=== PATIENT | male | born 1945 | race African-American/Black ===

== ENCOUNTER 2018-10-23 09:44 | Emergency (ER) | payer OTHER, BC ==
[~2018-10-23] VITALS: Ht 170.2 cm; Wt 65.8 kg
[~2018-10-23 09:44] MED LIST: ADULT LOW DOSE81 MG PO; ALKA-SELTZER P1 EAC7; ASPIRIN81 M2; CARVEDILOL25 MG PO; CENTRUM TABLET1 TAB PO; COREG PO; COZAAR 25 MG TA25 M2 PO; FERREX 150150 MG PO; FISH OIL 1,0001 EAC5 PO; GLUMETZA500 PO; LASIX 40 MG TAB40 M1 PO; LIPITOR40 MG PO; LISINOPRIL10 MG PO; MINIPRIN81 MG PO; NYQUIL D COLD295 ML; ONE DAILY FOR1 EAC2 PO; OXYCODONE HCL5 M1 PO; PHENYLEPHRINE H10 MG PO; PHISOHEX148 ML; POTASSIUM20; POTASSIUM20 PO; PROMETHAZINE/C118 ML
[2018-10-23 10:18] LABS: ABSOLUTE NEUTROPHILS 2.6 thou/uL (1.4-8.2); BASOPHILS 1.3 % (0.0-2.0); EOSINOPHILS 7.3 % (0.0-3.0); HEMATOCRIT 46.9 % (42.0-52.0); HEMOGLOBIN 15.8 gm/dL (14.0-18.0); LYMPHOCYTES 17.4 % (24.0-44.0); MCH 30.7 pg (26.0-34.0); MCHC 33.7 g/dL (28.0-37.0); MONOCYTES 8.5 % (1.0-8.0); PLATELET COUNT 179 thou/uL (150-400); POLYS 65.5 % (36.0-66.0); RBC 5.15 mil/uL (4.50-6.00); RDW 15.9 % (10.5-14.5)
[2018-10-23 10:33] LABS: ANION GAP 10 mmol/L (7-16); BUN 8 mg/dL (7-18); CALCIUM 9.4 mg/dL (8.5-10.1); CHLORIDE 103 mmol/L (98-107); CO2 25 mmol/L (21-32); GLUCOSE 110 mg/dL (74-106); POTASSIUM 4.6 mmol/L (3.5-5.1); SODIUM 138 mmol/L (136-145)
[2018-10-23 10:43] LABS: ALBUMIN 3.3 g/dL (3.4-5.0); SGOT 29 U/L (15-37); SGPT 18 U/L (30-65); TOTAL BILIRUBIN 1.2 mg/dL (<0.1-1.0); TOTAL PROTEIN 7.8 g/dL (6.4-8.2); TROPONIN-I <0.06 ng/mL (<0.06)
[2018-10-23 10:56] VITALS: BP 113/66
[2018-10-23] MEDS ORDERED: VENTOLIN HFA 1818 GM INH (11:29)
--- NOTE | 2018-10-23 17:12 | EKG ---
[address] [place] [address] ELECTROCARDIOGRAM REPORT Name: ENDER MEZAJUAN Brandi Room #: [facility]#: [id number] ������������������ Admission: 10/23/18 ������������������ Attend Phys: Discharge: 10/23/18 ������������������ Date of : 47 Report #: [id number] ����������������������������������������������������������������� [id number] THIS REPORT FOR: //name// [facility] ED Test Date: 2018-10-23 Test Time: 09:53:22 Pat Name: SHAISTA MEZA Department: Room: Gender: M Music Therapist: GISELLE : 1945 Requested By: Andre Levy Order Number: [id number] MD: Ramon Oneal Measurements Intervals [place] Rate: 74 P: 25 [place]: 143 QRS: -17 QRSD: 106 T: 196 QT: 457 QTc: 507 Interpretive Statements Sinus rhythm Abnormal R-wave progression, late transition Left ventricular hypertrophy Nonspecific ST and T wave abnormality Prolonged QT interval Compared to ECG 10/02/2013 04:48:07 Nonspecific change in the ST and T-wave segments Electronically Signed On 10-23-2018 17:11:48 CDT by Ramon Oneal [email or web address] ��������������������������������������������� <ELECTRONICALLY SIGNED> ���������������������������������������� By: Ramon Oneal MD, FACC ��������������������������������������������� 10/23/18 1711 0953 0953 Ramon Oneal MD, [facility] /EPI
== END 2018-10-23 11:33 | disposition home or self-care (01) ==
LOC: ER 09:44
PROVIDERS: Physician Assistant
DX: R06.02 Shortness of breath (principal); I11.0 Hypertensive heart disease with heart failure; I50.9 Heart failure, unspecified; Z95.1 Presence of aortocoronary bypass graft

== ENCOUNTER → 2019-07-12 | Outpatient (CLI) | payer OTHER, BC ==
[~2019-07-12] MED LIST changes: +VENTOLIN HFA 1818 GM INH
== END ==
LOC: SJCVC 11:33
DX: I25.810 Atherosclerosis of coronary artery bypass graft(s) without angina pectoris (principal); R94.31 Abnormal electrocardiogram [ECG] [EKG]; I25.5 Ischemic cardiomyopathy; I10 Essential (primary) hypertension; E78.5 Hyperlipidemia, unspecified; I71.2 Thoracic aortic aneurysm, without rupture; E11.9 Type 2 diabetes mellitus without complications; I11.0 Hypertensive heart disease with heart failure; I50.9 Heart failure, unspecified; Z95.1 Presence of aortocoronary bypass graft; Z79.899 Other long term (current) drug therapy

== ENCOUNTER 2020-03-30 10:00 | Inpatient (IN) | payer OTHER, BC ==
[~2020-03-30] VITALS: Ht 167.6 cm; Wt 73.0 kg
[2020-03-30 10:04] VITALS: BP 130/91
[2020-03-30 11:38] LABS: HEMATOCRIT 45.4 % (42.0-52.0); HEMOGLOBIN 15.2 gm/dL (14.0-18.0); MCH 32.2 pg (26.0-34.0); MCHC 33.4 g/dL (28.0-37.0); MCV 96.5 fL (80.0-100.0); RBC 4.71 mil/uL (4.50-6.00); RDW 17.1 % (10.5-14.5)
[2020-03-30 11:53] LABS: ANION GAP 12 mmol/L (7-16); BUN 12 mg/dL (7-18); CALCIUM 8.9 mg/dL (8.5-10.1); CHLORIDE 98 mmol/L (98-107); CO2 23 mmol/L (21-32); CREATININE 0.8 mg/dL (0.7-1.3); GLUCOSE 104 mg/dL (74-106); SODIUM 133 mmol/L (136-145)
[2020-03-30 11:55] LABS: POTASSIUM 4.2 mmol/L (3.5-5.1)
[2020-03-30 11:58] LABS: TROPONIN-I <0.06 ng/mL (<0.06)
--- NOTE | 2020-03-30 12:23 | EKG ---
[facility] [place] [address] ELECTROCARDIOGRAM REPORT Name: SHAISTA MEZA Room #: [facility]#: [id number] Admission: 03/30/20 Attend Phys: Discharge: Date of : 47 Report #: [id number] THIS REPORT FOR: cc: Austin Soto James A. 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: [facility] : 1945 Requested By: Jose Elias Ramos Order Number: [id number] MD: Kedar Aguila Measurements Intervals [place] Rate: 84 P: 40 ND: 131 QRS: -40 QRSD: 109 T: 129 QT: 399 QTc: 472 Interpretive Statements Sinus rhythm Atrial premature complexes Left atrial enlargement Abnormal R-wave progression, late transition LVH with secondary repolarization abnormality J-Point elevation v1-3 Atrial premature complex(es) now present Early repolarization now present Prolonged QT interval no longer present ST (T wave) deviation still present Electronically Signed On 03-30-2020 12:22:58 CDT by Kedar Aguila [email or web address] <ELECTRONICALLY SIGNED> By: Kedar Aguila MD, [facility] 03/30/20 1222 1123 1123 Kedar Aguila MD, [facility] /EPI
[2020-03-30 13:34] VITALS: BP 160/100
[2020-03-30 14:17] VITALS: BP 139/83
[2020-03-30 15:30] VITALS: BP 132/82
[2020-03-30 20:00] VITALS: BP 110/66
[2020-03-31] VITALS: BP 113/71
[2020-03-31 04:01] VITALS: BP 126/77
--- NOTE | 2020-03-31 04:04 | NUR ---
PT ALERT AND ORIENTED. VITALS STABLE. PT DENIES CHEST PAIN. NAUSEA OR VOMITING. VOIDING TO BATHROOOM INDEPENDENT. NO EVENTS OVERNIGHT. WILL CONTINUE TO MONITOR.
[2020-03-31 04:29] LABS: CALCIUM 9.1 mg/dL (8.5-10.1); POTASSIUM 3.9 mmol/L (3.5-5.1)
--- NOTE | 2020-03-31 07:44 | EKG ---
[facility] [place] [address] ELECTROCARDIOGRAM REPORT Name: SHAISTA MEZA Room #: 209-P ADM IN M.R.#: [id number] Admission: 03/30/20 Attend Phys: Yan Andujar Discharge: Date of : 47 Report #: [id number] THIS REPORT FOR: cc: Austin Soto,Kedar Ventura MD [facility] ~ THIS REPORT FOR: //name// [facility] Test Date: 2020-03-31 Test Time: 07:10:41 Pat Name: SHAISTA MEZA Department: Room: 209 P Gender: M Director Of Acquisitions: PARADISE : 1945 Requested By: Ramon Oneal Order Number: [id number] MD: Kedar Aguila Measurements Intervals [place] Rate: 73 P: 47 [place]: 152 QRS: -19 QRSD: 118 T: 134 QT: 450 QTc: 496 Interpretive Statements Sinus rhythm Probable left atrial enlargement Left ventricular hypertrophy Probable lateral infarct, age indeterminate Nonspecific T abnormalities, lateral leads Borderline prolonged QT interval Compared to ECG 03/30/2020 11:23:02 T-wave abnormality now present Atrial premature complex(es) no longer present Early repolarization no longer present Electronically Signed On 03-31-2020 7:44:15 CDT by Kedar Aguila [email or web address] <ELECTRONICALLY SIGNED> By: Kedar Aguila MD, [facility] 03/31/2044 9 9 Kedar Aguila MD, [facility] /EPI
[2020-03-31 08:05] VITALS: BP 107/58
[2020-03-31 11:42] VITALS: BP 82/52
--- NOTE | 2020-03-31 16:04 | HC ---
[facility] [place] [address] [place] [address] CONSULTATION Name: CHRISTOPHER MEZA Room #: 209-P ADM IN M.R.#: [id number] Admission: 03/30/20 Attend Phys: Yan Andujar Discharge: Date of : 47 Report #: [id number] THIS REPORT FOR: cc: Austin Soto James A. DO Forman, John M. MD ~ CC: Israel Andujar DATE OF SERVICE: 03/30/2020 We were asked to see Christopher Meza for evaluation of a dilated ascending aorta. HISTORY OF PRESENT ILLNESS: The patient is a 75-year-old admitted one day ago with heart failure manifested by shortness of breath, orthopnea and pedal edema. The patient is status post coronary artery bypass surgery approximately 5 years ago. Past history also includes pericardiocentesis, asthma and hypercholesterolemia. The patient had been taking Lasix at home, but this had been stopped. According to notes, the last cardiac echo shows an ejection fraction of 30%. ALLERGIES: None known. PAST MEDICAL HISTORY: Also is significant for hypertension. MEDICATIONS AT HOME: Includes albuterol, losartan, aspirin, carvedilol, potassium, atorvastatin and Lasix and albuterol had been stopped. SOCIAL HISTORY: Significant for alcohol. REVIEW OF SYSTEMS: I agree with the review of systems as dictated in the Emergency Department. In addition, the patient tells me that he had to sleep with the head of the bed elevated because of shortness of breath when lying flat. PHYSICAL EXAMINATION: GENERAL: The patient is sitting on the side of the bed in comfort. VITAL SIGNS: Temperature 36.8, heart rate 85, respiratory rate 20, blood pressure 132/82, O2 sat 98 on room air. HEENT: No scleral icterus, no arcus, normocephalic. NECK: No mass. I hear no bruit. CHEST: Clear to auscultation. HEART: Rhythm regular. I hear no murmur. ABDOMEN: Soft. EXTREMITIES: Bilateral pedal edema. No clubbing, no cyanosis. [facility] [address] [place] [address] CONSULTATION Name: CHRISTOPHER MEZA Room #: 209-P [facility] IN ..#: [id number] Admission: 03/30/20 Attend Phys: Yan Andujar Discharge: Date of : 47 Report #: [id number] NEUROLOGIC: No motor or sensory dysfunction. MUSCULOSKELETAL: No bone or joint asymmetry or deformity. SKIN: No rash or infection. PSYCHIATRIC: Shows insight into problem and is a pleasant fellow. We note on admission, the NT-proBNP was 4728 with a normal BUN and creatinine and mild hyponatremia. A CT scan was done and this shows up to 5 cm dilatation of the ascending aorta on one of the axial cuts. ASSESSMENT: The patient does have a dilated ascending aorta, but there is no information as to acute or chronic. The study itself was done for pulmonary embolism. As such, there is no evidence for dissection. The patient has had bypass surgery and has not had a median sternotomy in the past and has reduced ventricular function at this point with heart failure; all of this would make surgery for the ascending aorta much more hazardous knik particularly if done simply for a dilated aorta. At this stage, my recommendation would be to follow the patient perhaps on a 6-monthly basis with a CT scan with or without contrast depending on renal function and make judgment based on if there is a progression in size or symptomatology. Thank you for the consult. <ELECTRONICALLY SIGNED> By: Bradly Kramer MD 03/31/20 1604 1703 15 Bradly Kramer MD /nt
[2020-03-31 20:01] VITALS: BP 85/582
[2020-03-31 22:34] VITALS: BP 98/55
--- NOTE | 2020-04-01 04:34 | NUR ---
1900. PT ALERT AND ORIENTED. VITALS STABLE. DENIES PAIN. RUNNING LOW BP, DENIES ANY DIZZINESS OR LIGHT HEADEDNESS. NO NAUSEA OR CHEST PAIN REPORTED. PT LOOKING FORWARD TO DC THIS AM. NO OTHER CONCERNS. WILL CONTINUE TO MONITOR. NO EVENTS OVERNIGHT. WILL CONTINUE TO MONITOR.
[2020-04-01 05:40] VITALS: BP 110/68
[2020-04-01 06:42] LABS: ALBUMIN 2.9 g/dL (3.4-5.0); CALCIUM 8.7 mg/dL (8.5-10.1); CREATININE 1.2 mg/dL (0.7-1.3); PHOSPHORUS 4.4 mg/dL (2.5-4.9); POTASSIUM 4.6 mmol/L (3.5-5.1)
[2020-04-01 07:40] VITALS: BP 113/71
--- NOTE | 2020-04-01 07:45 | EKG ---
[facility] [address] [place] [address] ELECTROCARDIOGRAM REPORT Name: SHAISTA MEZA Room #: 209-P ADM IN M.R.#: [id number] Admission: 03/30/20 Attend Phys: Yan Andujar Discharge: Date of : 47 Report #: [id number] THIS REPORT FOR: cc: Austin Soto James A. DO Lundgren, Craig H. MD [facility] ~ THIS REPORT FOR: //name// [facility] Test Date: 2020-04-01 Test Time: 07:13:43 Pat Name: SHAISTA MEZA Department: Room: 209 P Gender: M Policy Checker: PARADISE : 1945 Requested By: Ramon Oneal Order Number: [id number] MD: Ramon Oneal Measurements Intervals [place] Rate: 70 P: 44 [place]: 161 QRS: -35 QRSD: 106 T: 144 QT: 449 QTc: 485 Interpretive Statements Sinus rhythm Probable left atrial enlargement Abnormal R-wave progression, late transition LVH with secondary repolarization abnormality Small lateral Q waves Borderline prolonged QT interval Baseline wander in lead(s) V3 Compared to ECG 03/31/2020 07:10:41 No significant change was found Electronically Signed On 04-01-2020 7:45:33 CDT by Ramno Oneal [email or web address] <ELECTRONICALLY SIGNED> By: Ramon Oneal MD, [facility] 04/01/2045 2 2 Ramon Oneal MD, [facility] /EPI
[2020-04-01] MEDS ORDERED: CARVEDILOL25 MG PO (08:30)
[2020-04-01] MEDS ORDERED: LASIX 20 MG TAB20 MG PO (08:31)
--- NOTE | 2020-04-01 09:38 | NUR ---
PT. ALERT AND PLEASANT OVERALL. DENIES ANY CHEST PAIN, NO N+V EITHER. BLOOD RPESSURE HAS COME UP SINCE LAST NIGHT. LOWER EXTREMETIES APPEAR TO HAVE IMPROVED OVERALL IN HIS CALVES WITH JUST MILD EDEMA NOTED AND NOW MOSTLY JUST REMAINS IN HIS FEET BILATERALLY AT 2+. NO ECTOPY OBERSVED THIS AM ON MONITOR. IV REMOVED FOR DISCHARGE AND TEACHING ABOUT CHF S+S REVIEWED WITH HIM AND WHEN TO CALL HIS MD.
[2020-04-01 09:44] VITALS: BP 113/71
[2020-04-02 21:05] LABS: SYPHILIS AB Non Reactive (Non Reactive)
== END 2020-04-01 11:01 | disposition home or self-care (01) | DRG 291 ==
LOC: ER 10:00 → EROBS 12:44 → 2N 12:44
PROVIDERS: Emergency Medicine; Internal Medicine; ADMIT Hospitalist; ATTEND Hospitalist
DX: I11.0 Hypertensive heart disease with heart failure (principal); N17.0 Acute kidney failure with tubular necrosis; J98.11 Atelectasis; E44.1 Mild protein-calorie malnutrition; I50.23 Acute on chronic systolic (congestive) heart failure; I25.10 Atherosclerotic heart disease of native coronary artery without angina pectoris; E78.5 Hyperlipidemia, unspecified; E11.9 Type 2 diabetes mellitus without complications; G47.33 Obstructive sleep apnea (adult) (pediatric); I71.2 Thoracic aortic aneurysm, without rupture; I25.5 Ischemic cardiomyopathy; R63.0 Anorexia; J45.909 Unspecified asthma, uncomplicated; E78.00 Pure hypercholesterolemia, unspecified; I25.2 Old myocardial infarction; Z95.1 Presence of aortocoronary bypass graft; Z79.82 Long term (current) use of aspirin; Z79.899 Other long term (current) drug therapy; Z68.26 Body mass index [BMI] 26.0-26.9, adult
CPT/HCPCS: 10081

== ENCOUNTER → 2020-07-07 | Outpatient (CLI) | payer OTHER, BC ==
[~2020-07-07] MED LIST changes: +LASIX 20 MG TAB20 MG PO
== END ==
LOC: SJCVC 10:52
PROVIDERS: ATTEND Internal Medicine
DX: R94.31 Abnormal electrocardiogram [ECG] [EKG] (principal); I25.10 Atherosclerotic heart disease of native coronary artery without angina pectoris; I25.5 Ischemic cardiomyopathy; I11.0 Hypertensive heart disease with heart failure; I50.9 Heart failure, unspecified; E78.5 Hyperlipidemia, unspecified; I71.2 Thoracic aortic aneurysm, without rupture; E11.9 Type 2 diabetes mellitus without complications; G47.33 Obstructive sleep apnea (adult) (pediatric); Z95.1 Presence of aortocoronary bypass graft; Z79.82 Long term (current) use of aspirin; Z79.899 Other long term (current) drug therapy; Z72.89 Other problems related to lifestyle

== ENCOUNTER → 2021-01-05 | Outpatient (CLI) | payer OTHER, BC | LOC: SJCVC 11:19 | PROVIDERS: ATTEND Internal Medicine | DX: R94.31 Abnormal electrocardiogram [ECG] [EKG] (principal); I44.5 Left posterior fascicular block; I25.10 Atherosclerotic heart disease of native coronary artery without angina pectoris; I11.0 Hypertensive heart disease with heart failure; I50.9 Heart failure, unspecified; I25.5 Ischemic cardiomyopathy; I71.2 Thoracic aortic aneurysm, without rupture; E11.9 Type 2 diabetes mellitus without complications; E78.5 Hyperlipidemia, unspecified; G47.33 Obstructive sleep apnea (adult) (pediatric); I42.9 Cardiomyopathy, unspecified; Z95.1 Presence of aortocoronary bypass graft; Z79.82 Long term (current) use of aspirin; Z79.899 Other long term (current) drug therapy ==

== ENCOUNTER → 2021-02-16 | Outpatient (CLI) | payer OTHER, BC | LOC: SJCVC 13:49 | PROVIDERS: ATTEND Internal Medicine | DX: I95.1 Orthostatic hypotension (principal); I25.5 Ischemic cardiomyopathy; I25.10 Atherosclerotic heart disease of native coronary artery without angina pectoris; I10 Essential (primary) hypertension; E11.9 Type 2 diabetes mellitus without complications; E78.5 Hyperlipidemia, unspecified; I71.2 Thoracic aortic aneurysm, without rupture; Z95.1 Presence of aortocoronary bypass graft; Z72.89 Other problems related to lifestyle; Z79.82 Long term (current) use of aspirin; Z79.899 Other long term (current) drug therapy ==

== ENCOUNTER → 2021-03-31 | Outpatient (CLI) | payer OTHER, BC | LOC: SJCVC 10:05 | PROVIDERS: ATTEND Internal Medicine | DX: R94.31 Abnormal electrocardiogram [ECG] [EKG] (principal); I44.5 Left posterior fascicular block; I25.10 Atherosclerotic heart disease of native coronary artery without angina pectoris; I11.0 Hypertensive heart disease with heart failure; I50.9 Heart failure, unspecified; I25.5 Ischemic cardiomyopathy; I95.1 Orthostatic hypotension; I71.2 Thoracic aortic aneurysm, without rupture; R55 Syncope and collapse; E11.9 Type 2 diabetes mellitus without complications; G47.33 Obstructive sleep apnea (adult) (pediatric); E78.5 Hyperlipidemia, unspecified; Z95.1 Presence of aortocoronary bypass graft; Z79.899 Other long term (current) drug therapy; Z79.82 Long term (current) use of aspirin; Z72.89 Other problems related to lifestyle ==

== ENCOUNTER → 2021-07-08 | Outpatient (CLI) | payer OTHER, BC | LOC: SJCVC 10:12 | PROVIDERS: ATTEND Internal Medicine | DX: R94.31 Abnormal electrocardiogram [ECG] [EKG] (principal); I44.5 Left posterior fascicular block; I25.5 Ischemic cardiomyopathy; I25.10 Atherosclerotic heart disease of native coronary artery without angina pectoris; I50.9 Heart failure, unspecified; I11.0 Hypertensive heart disease with heart failure; G47.33 Obstructive sleep apnea (adult) (pediatric); E11.9 Type 2 diabetes mellitus without complications; E78.5 Hyperlipidemia, unspecified; I71.2 Thoracic aortic aneurysm, without rupture; Z95.1 Presence of aortocoronary bypass graft; Z72.89 Other problems related to lifestyle; Z79.82 Long term (current) use of aspirin; Z79.899 Other long term (current) drug therapy; Z82.49 Family history of ischemic heart disease and other diseases of the circulatory system ==

== ENCOUNTER 2021-08-04 16:26 | Inpatient (IN) | payer OTHER, BC ==
[~2021-08-04] VITALS: Ht 152.4 cm; Wt 71.7 kg
[2021-08-04 16:28] VITALS: BP 107/69
[2021-08-04 17:00] LABS: ABSOLUTE NEUTROPHILS 2.3 thou/uL (1.4-8.2); BASOPHILS 1.4 % (0.0-2.0); EOSINOPHILS 9.1 % (0.0-3.0); HEMATOCRIT 44.1 % (42.0-52.0); HEMOGLOBIN 14.3 gm/dL (14.0-18.0); LYMPHOCYTES 16.5 % (24.0-44.0); MCHC 32.4 g/dL (28.0-37.0); MCV 95.8 fL (80.0-100.0); MONOCYTES 6.7 % (1.0-8.0); PLATELET COUNT 122 thou/uL (150-400); POLYS 66.3 % (36.0-66.0); RBC 4.61 mil/uL (4.50-6.00); RDW 15.6 % (10.5-14.5); WBC 3.5 thou/uL (4.0-11.0)
[2021-08-04 17:14] LABS: CALCIUM 8.6 mg/dL (8.5-10.1); CREATININE 1.2 mg/dL (0.7-1.3)
[2021-08-04 17:39] LABS: POTASSIUM 5.4 mmol/L (3.5-5.1)
[2021-08-04 19:51] VITALS: BP 116/71
[2021-08-04 20:10] VITALS: BP 116/75
[2021-08-04 21:10] VITALS: BP 127/77
[2021-08-05 05:04] VITALS: BP 125/67
--- NOTE | 2021-08-05 06:36 | NUR ---
PATIENT CARES ASSUMED AFTER A TRANSFER FROM ED. PATIENT ADMITTED TO THE FLOOR, ASSESSED AND ORDERS CARRIED ONT THAT WERE COMPLETED.PATIENT HAS A STEADY GAIT AND IS ABLE TO HAVE BRP WITH STAND BY. ROUNDS DONE. THE BED IS IN A LOW AND LOCKED POSITION
--- NOTE | 2021-08-05 07:59 | EKG ---
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: : 1945 Requested By: Sravani Cain Order Number: [id number] MD: Kedar Aguila Measurements Intervals [place] Rate: 61 P: 45 [place]: 171 QRS: -55 QRSD: 112 T: 152 QT: 503 QTc: 507 Interpretive Statements Sinus rhythm Probable left atrial enlargement Low voltage, extremity leads Abnormal R-wave progression, late transition Left ventricular hypertrophy Compared to ECG 04/01/2020 07:13:43 Low QRS voltage now present Electronically Signed On 08-05-2021 7:59:33 INDUSTRIAL X RAY OPERATOR by Kedar Aguila [email or web address] <ELECTRONICALLY SIGNED> By: Kedar Aguila MD, [facility] 08/05/21 0759 1634 1634 Kedar Aguila MD, [facility] /EPI
[2021-08-05 08:45] VITALS: BP 132/71
[2021-08-05 08:47] VITALS: BP 132/71
--- NOTE | 2021-08-05 11:06 | 2DMMODE ---
[facility] [place] [address] 2 D/M-MODE ECHOCARDIOGRAM Name: SHAISTA MEZA Room #: 218-P [facility] IN M.R.#: [id number] Admission: 08/04/21 Attend Phys: Eduardo Pedro MD Discharge: Date of : 47 Report #: [id number] THIS REPORT FOR: cc: Austin Soto James A. DO Lundgren, Craig H. MD [facility] ~ APPROVED REPORT Study performed: 08/05/2021 10:08:49 EXAM: Comprehensive 2D, Doppler, and color-flow Echocardiogram Patient Location: Bedside Room #: 218 Status: routine BSA: 1.82 HR: 72 bpm BP: 132/71 mmHg Rhythm: NSR Other Information Study Quality: Excellent Indications Short of breath, CHF. Hx: CABG, CM, ETOH abuse, dilated aorta, CHF. 2D Dimensions RVDd: 46.87 mm IVSd: 9.06 (7-11mm) LVOT Diam: 21.67 (18-24mm) LVDd: 66.72 mm PWd: 8.40 (7-11mm) Ascending Ao: 47.17 (22-36mm) LVDs: 61.55 (25-40mm) Left Atrium: 46.12 (27-40mm) Aortic Root: 41.53 mm Volumes Left Atrial Volume (Systole) Single Plane 4CH: 82.55 mL Single Plane 2CH: 110.85 mL LA ESV Index: 56.00 mL/m2 Aortic Valve AoV Peak Ti.: 1.07 m/s AO Peak Gr.: 4.57 mmHg LVOT Max P.68 mmHg LVOT Max V: 0.82 m/s [facility] [address] [address] 2 D/M-MODE ECHOCARDIOGRAM Name: DERRICKSHAISTA Paz Room #: [address] [place] [address]#: [id number] Admission: 08/04/21 Attend Phys: Eduardo Pedro, Discharge: Date of : 47 Report #: [id number] ALBERTO Vmax: 2.82 cm2 Mitral Valve E/A Ratio: 1.4 MV Decel. Time: 110.44 ms MV E Max Ti.: 0.82 m/s MV A Ti.: 0.59 m/s MV PHT: 32.03 ms IVRT: 55.36 ms Pulmonary Valve PV Peak Ti.: 0.65 m/s PV Peak Gr.: 1.67 mmHg Pulmonary Vein P Vein S: 0.47 m/s P Vein D: 0.57 m/s P Vein S/D Ratio: 0.82 Tricuspid Valve TR Peak Ti.: 3.07 m/s RAP Estimate: 10.00 mmHg TR Peak Gr.: 38.00 mmHg PA Pressure: 48.00 mmHg Left Ventricle Left ventricle is moderately dilated. Global hypokinesis of the left ventricle. There is normal left ventricular wall thickness. Left ventricular systolic function is severely decreased. LVEF 20-25%. Moderate diastolic dysfunction Right Ventricle Right ventricle is dilated and hypokinetic. Atria Severe biatrial enlargement. Aortic Valve Aortic valve is trileaflet, mildly calcified. Mild aortic regurgitation. No aortic valvular stenosis. Mitral Valve The mitral valve is normal in structure. Mild to moderate mitral regurgitation. Tricuspid Valve The tricuspid valve is normal in structure. Severe tricuspid regurgitation. Estimated pulmonary artery pressure of [facility] [address] [place] [address] 2 D/M-MODE ECHOCARDIOGRAM Name: SHAISTA MEZA Room #: 218-P [facility] IN .R.#: [id number] Admission: 08/04/21 Attend Phys: Eduardo Pedro, Discharge: Date of : 47 Report #: [id number] 45mmHg. Pulmonic Valve The pulmonary valve is normal in structure. Mild to moderate pulmonic regurgitation. Great Vessels Aortic root is dilated (4.2cm). Ascending aorta is dilated (4.7cm). IVC is normal in size and collapses <50% with inspiration. Pericardium There is no pericardial effusion. <Conclusion> Left ventricular systolic function is severely decreased. Global hypokinesis of the left ventricle. LVEF 20-25%. Moderate diastolic dysfunction Severe biatrial enlargement. Aortic valve is trileaflet, mildly calcified. Mild aortic regurgitation, no stenosis. Mitral valve leaflets are normal. Mild to moderate mitral regurgitation. Severe tricuspid regurgitation. Estimated pulmonary artery pressure of 45mmHg. Ascending aorta is dilated (4.7cm). There is no pericardial effusion. Similar to December,. <ELECTRONICALLY SIGNED> By: Ramon Oneal MD, FACC 08/05/21 1105 1105 1105 Ramon Oneal MD, FACC /INF
--- NOTE | 2021-08-05 11:09 | NUR ---
PATIENT ADMITTED FOR SHORT OF AIR. CHART REVIEWED AND DISCUSSED WITH CARE TEAM. CM MET WITH PT THIS DAY. CM ROLE INTRODUCED. PT REPORTS HE LIVES IN SPLIT LEVEL BY HIMSELF. RECENTLY LOST HIS Mar. HE REPORTS HE DOING OKAY WITH THE LOSS. HE REPORTS THEY WERE FOR A LONG TIME, IT IS NOT EASY BUT INDICATES HE IS COPING WELL. CM OFFERED OUTSIDE RESOURCES AND PT REPORTS HE DIDNT FEEL IT WAS NECESSARY. PT REPORTS 8 STEPS FOLLOWING BY LANDING WITH 4 STEPS INSIDE THE HOME. HAS 4 STEPS OUTSIDE THE HOME. HE REPORTS NO CONCERNS OR ISSUES WITH STAIRS. HE REPORTS NO ASST DEVICE AND INDEP WITH ADLS AND MOBILITY. UP ADLIB IN HOME AND IN COMMUNITY. CM WITNESSED PT TRANSFER FROM W/C TO BED WITH TRANSPORT INDEPENDENTLY AND STEADY. PT REPORTS NOT HAVING USED HH/SNF/OUTSIDE THERAPY IN THE PAST. HE REPORTS HE DOES NOT ANCIPATE NEEDING ASST WHEN MEDICALLY STABLE TO DC. PTS CONFIRMS PCP IS UVALDO STANTON AND PRIMARY CONTACT IS DAUGHTER BRENNAN MAGAÑA. NO PT/OT ORDERED. CM FOLLOWING SHOULD PT NEEDS ARISE FOR DISCARGE.
[2021-08-05 12:32] VITALS: BP 117/76
[2021-08-05 16:23] VITALS: BP 117/60
--- NOTE | 2021-08-05 17:27 | NUR ---
ASSUMED PT CARE THIS MORNING. PT A&OX4 BUT FORGETFUL. PT NEEDS A UA AND WAS REMINDED SEVERAL TIMES THROUGHOUT THE SHIFT. PT HAS NOT PROVIDED A SAMPLE YET. CIWA PROTOCOL STARTED AND PT NOT SCORING YET. DENIES HALLUCINATIONS. PT BRIGHTENED UP ONCE FAMILY ARRIVED.
[2021-08-05 19:05] VITALS: BP 103/61
[2021-08-06 01:09] LABS: URINE BILIRUBIN NEGATIVE (Negative); URINE BLOOD NEGATIVE (Negative); URINE CLARITY CLEAR; URINE COLOR YELLOW; URINE GLUCOSE-RANDOM* NEGATIVE (Negative); URINE KETONES NEGATIVE (Negative); URINE LEUKOCYTES-REFLEX NEGATIVE (Negative); URINE NITRITE-REFLEX NEGATIVE (Negative); URINE PROTEIN (DIPSTICK) NEGATIVE (Negative); URINE SPECIFIC GRAVITY 1.025 (1.005-1.035); URINE UROBILINOGEN 0.2 E.U./dl (0.2-1.0)
[2021-08-06 04:00] VITALS: BP 132/78
[2021-08-06 05:12] LABS: CALCIUM 8.3 mg/dL (8.5-10.1); CREATININE 1.3 mg/dL (0.7-1.3); MAGNESIUM 1.7 mg/dL (1.8-2.4); POTASSIUM 4.1 mmol/L (3.5-5.1)
[2021-08-06 05:18] LABS: HEMATOCRIT 38.7 % (42.0-52.0); HEMOGLOBIN 12.8 gm/dL (14.0-18.0); MCH 31.4 pg (26.0-34.0); MCHC 33.1 g/dL (28.0-37.0); MCV 94.8 fL (80.0-100.0); RBC 4.08 mil/uL (4.50-6.00); RDW 15.7 % (10.5-14.5)
--- NOTE | 2021-08-06 06:15 | NUR ---
PT A&OX4 BUT FORGETFUL, ABLE TO COMMUNICATE WANTS AND NEEDS TO STAFF. PLEASANT AND COOPERATIVE THROUGHOUT THE SHIFT. PT WAS ABLE TO PROVIDE URINE SAMPLE, SENT TO LAB, RESULTS UNREMARKABLE. PT STILL SCORING ZERO ON CIWA AT THIS TIME. VSS THROUGHOUT THE SHIFT. PT UP AD REGIS WITH STEADY GAIT NOTED. WILL CONTINUE TO OBSERVE FOR CHANGES
[2021-08-06 08:45] VITALS: BP 119/70
--- NOTE | 2021-08-06 09:20 | EKG ---
[place] [address] [facility] [place] [address] ELECTROCARDIOGRAM REPORT Name: ENDER MEZAJUAN Paz Room #: 218-P [facility] IN M.R.#: [id number] Admission: 08/04/21 Attend Phys: Eduardo Pedro MD Discharge: Date of : 47 Report #: [id number] [facility] Test Date: 2021-08-06 Test Time: 07:54:55 Pat Name: SHAISTA MEZA Department: Room: 218 P Gender: M Hostess Cashier: OMID : 1945 Requested By: Ramon Oneal Order Number: [id number] MD: Ramon Oneal Measurements Intervals [place] Rate: 74 P: 43 [place]: 154 QRS: -53 QRSD: 112 T: 167 QT: 416 QTc: 462 Interpretive Statements Sinus rhythm Leftward axis Poor R wave progression Nonspecific ST and T wave abnormality Compared to ECG 08/04/2021 16:34:17 No significant change was found Electronically Signed On 08-06-2021 9:20:43 COLLAR BASTER by Ramon Oneal [email or web address] <ELECTRONICALLY SIGNED> By: Ramon Oneal MD, [facility] 08/06/21 09 0754 0754 Ramon Oneal MD, [facility] /EPI
[2021-08-06 12:36] VITALS: BP 116/64
[2021-08-06 17:39] VITALS: BP 107/72
--- NOTE | 2021-08-06 18:13 | NUR ---
ASSUMED PT CARE THIS MORNING. PT A&OX4 AND COMMUNICATING NEEDS TO STAFF APPROPRIATELY. PT APPEARED BRIGHTER THIS SHIFT AND DENIES HALLUCINATION. PT SLEPT FOR THE MAJORITY OF THE SHIFT BUT IS EASY TO WAKE UP. PT DENIED NAUSEA, VOMITING, AND PAIN THROUGHOUT THE SHIFT. PT AMBULATED IN THE ROOM WITH STAND BY ASSISTANCE FROM STAFF. VOIDING WITHOUT ISSUE AND HAD A GOOD APPETITE.
[2021-08-06 19:40] VITALS: BP 105/59
[2021-08-07 04:03] LABS: HEMATOCRIT 39.6 % (42.0-52.0); HEMOGLOBIN 12.7 gm/dL (14.0-18.0); MCH 30.6 pg (26.0-34.0); MCHC 32.2 g/dL (28.0-37.0); MCV 95.1 fL (80.0-100.0); RBC 4.17 mil/uL (4.50-6.00); RDW 15.7 % (10.5-14.5); WBC 3.4 thou/uL (4.0-11.0)
--- NOTE | 2021-08-07 04:05 | NUR ---
Pt. has slept well during the night. Up ad jessica in room with steady gait.Denies shortness of breath. CIWA score=0. Voiding per urinal. Making progress towards care plan goals.
[2021-08-07 04:15] LABS: CALCIUM 8.3 mg/dL (8.5-10.1); POTASSIUM 4.1 mmol/L (3.5-5.1)
[2021-08-07 04:54] VITALS: BP 125/73
[2021-08-07 09:02] VITALS: BP 118/78
[2021-08-07 12:20] VITALS: BP 98/70
[2021-08-07] MEDS ORDERED: LIPITOR40 MG PO ×2 (13:22)
[2021-08-07] MEDS ORDERED: LEVOFLOXACIN750 MG PO ×2 (13:22)
[2021-08-07 13:33] VITALS: BP 98/70
--- NOTE | 2021-08-07 14:56 | NUR ---
ASSESSMENT CHARTED - MEDS PER RASHMI MAN DIET AND FLUIDS. UP AD REGIS IN ROOM. NO CO'S OF PAIN OR NAUSEA. PT HOME THIS AGTERNOON - INSTRUCTION RE HOME MEDS/ CARE AND FOLLOW UP GIVEN TO PT AND DAUGHTER. STATED UNDERSTANDING ON INSTRUCTION GIVEN. LEFT UNIT VIA WHEELCHAIR - HOME VIA PVT VEHICLE ACCOMPAINED BY [place] - NO CO'S AT TIME OF D/C.
== END 2021-08-07 14:38 | disposition home or self-care (01) | DRG 871 ==
LOC: ER 16:26 → 2N 20:15
PROVIDERS: Student in an Organized Health Care Education/Training Program; ADMIT Internal Medicine; ATTEND Internal Medicine
DX: A41.9 Sepsis, unspecified organism (principal); J18.9 Pneumonia, unspecified organism; I50.43 Acute on chronic combined systolic (congestive) and diastolic (congestive) heart failure; R44.3 Hallucinations, unspecified; F10.139 Alcohol abuse with withdrawal, unspecified; I25.5 Ischemic cardiomyopathy; E87.5 Hyperkalemia; E11.9 Type 2 diabetes mellitus without complications; G47.33 Obstructive sleep apnea (adult) (pediatric); E78.5 Hyperlipidemia, unspecified; F32.A Depression, unspecified; R41.0 Disorientation, unspecified; N40.0 Benign prostatic hyperplasia without lower urinary tract symptoms; K21.9 Gastro-esophageal reflux disease without esophagitis; R53.81 Other malaise; I25.10 Atherosclerotic heart disease of native coronary artery without angina pectoris; I11.0 Hypertensive heart disease with heart failure; Z20.822 Contact with and (suspected) exposure to COVID-19; Z95.1 Presence of aortocoronary bypass graft; I25.2 Old myocardial infarction; Z79.899 Other long term (current) drug therapy; Z79.82 Long term (current) use of aspirin; Z82.49 Family history of ischemic heart disease and other diseases of the circulatory system
CPT/HCPCS: 10081

== ENCOUNTER → 2021-08-23 | Outpatient (CLI) | payer OTHER, BC ==
[~2021-08-23] MED LIST changes: +LEVOFLOXACIN750 MG PO
== END ==
LOC: SJCVC 12:33
PROVIDERS: ATTEND Internal Medicine
DX: R94.31 Abnormal electrocardiogram [ECG] [EKG] (principal); I44.5 Left posterior fascicular block; I11.0 Hypertensive heart disease with heart failure; I25.5 Ischemic cardiomyopathy; I50.22 Chronic systolic (congestive) heart failure; I25.10 Atherosclerotic heart disease of native coronary artery without angina pectoris; E11.9 Type 2 diabetes mellitus without complications; E78.5 Hyperlipidemia, unspecified; I71.2 Thoracic aortic aneurysm, without rupture; G47.33 Obstructive sleep apnea (adult) (pediatric); Z95.1 Presence of aortocoronary bypass graft; Z72.89 Other problems related to lifestyle; Z79.82 Long term (current) use of aspirin; Z79.899 Other long term (current) drug therapy; Z82.49 Family history of ischemic heart disease and other diseases of the circulatory system